=== PATIENT | female | born 1985 | race Caucasian/White ===

== ENCOUNTER 2020-01-23 20:46 | Emergency (ER) | payer OTHER ==
--- NOTE | 2020-01-23 21:22 | ER Document Report ---
ED Medical Screen (RME) - General Chief Complaint: Head Injury Stated Complaint: HEAD INJURY/HEAD PAIN Time Seen by Provider: 01/23/20 21:04 Notes: Patient is a 34-year-old female who presents emergency department with a chief complaint of head injury. Patient reports around 11 p.m. last night she bent down to pick an object up when she smacked her head on a wooden table. Patient reports that she saw stars afterwards. Patient reports she then ambulated to the restroom, looked down at the sink and hit her head on the faucet losing consciousness and falling to the floor. Patient reports she does have a history of Chiari malformation with multiple head surgeries as well as neck surgeries. Patient states today she is felt a little bit off. Patient has a hematoma to the forehead. - Related Data Allergies/Adverse Reactions: latex Allergy (Verified 01/23/20 21:06) shellfish derived Allergy (Verified 01/23/20 21:06) Past Medical History - Social History Frequency of alcohol use: Occasional Drug Abuse: Marijuana Physical Exam - Vital signs Vitals: Temp Pulse Resp BP Pulse Ox 99.3 F 109 H 16 147/78 H 99 01/23/20 20:54 01/23/20 20:54 01/23/20 20:54 01/23/20 20:54 01/23/20 20:54 Course - Re-evaluation Re-evalutation: 01/23/20 21:22 Hematoma to forehead. PERRLA. Patient speaking in clear complete sentences. No vomiting. I have greeted and performed a rapid initial assessment of this patient. A comprehensive ED assessment and evaluation of the patient, analysis of test results and completion of the medical decision making process will be conducted by additional ED providers. - Vital Signs Vital signs: Temp Pulse Resp BP Pulse Ox 99.3 F 109 H 16 147/78 H 99 01/23/20 20:54 01/23/20 20:54 01/23/20 20:54 01/23/20 20:54 01/23/20 20:54
--- NOTE | 2020-01-24 00:03 | RADIOLOGY REPORT (SQ) ---
EXAM DESCRIPTION: CT HEAD WITHOUT IV CONTRAST COMPLETED DATE/TME: 01/23/2020 21:19 CLINICAL HISTORY: Head injury with LOC COMPARISON: None available TECHNIQUE: Axial CT of the head obtained from the skull apex to the skull base without contrast. FINDINGS: No acute intracranial hemorrhage identified. No mass, mass effect, shift of the midline, abnormal extra-axial fluid collection or CT evidence of acute ischemic change identified. The ventricular system is unremarkable. No acute abnormalities of the supratentorial white matter, basal ganglia, cerebellum, or brainstem. Polypoid mucosal thickening of the bilateral maxillary sinuses. Mastoid air cells are well aerated. Postoperative change of the occipital bone. Visualized orbits and globes are unremarkable. IMPRESSION: 1. No acute intracranial abnormality identified. This exam was performed according to our departmental dose-optimization program, which includes automated exposure control, adjustment of the mA and/or kV according to patient size and/or use of iterative reconstruction technique.
--- NOTE | 2020-01-24 00:06 | RADIOLOGY REPORT (SQ) ---
EXAM DESCRIPTION: CT CERVICAL SPINE WITHOUT IV CONTRAST COMPLETED DATE/TME: 01/23/2020 21:19 CLINICAL HISTORY: Head injury with LOC COMPARISON: None available TECHNIQUE: Axial CT of the cervical spine obtained without contrast. FINDINGS: Alignment of the cervical spine is maintained without evidence of subluxation. Likely postoperative change involving the posterior ring C1. The atlantoaxial, atlantodental, and occipitoatlantal intervals are preserved. No fracture identified. Vertebral body height preserved. Prevertebral soft tissues are unremarkable. Intervertebral disc height preserved. Mild facet arthropathy at C2/C3 and C3/C4. Visualized skull base is intact. No fracture of the visualized facial bones. Visualized mastoid air cells and paranasal sinuses are well aerated. Visualized thyroid is unremarkable. No cervical lymphadenopathy. No pneumothorax in the visualized lung apices. IMPRESSION: 1. No acute fracture or subluxation of the cervical spine. This exam was performed according to our departmental dose-optimization program, which includes automated exposure control, adjustment of the mA and/or kV according to patient size and/or use of iterative reconstruction technique.
[2020-01-24] MEDS ORDERED: ONDANSETRON ODT 4 MG TAB (6 TAB/ER DISP) PO PRN (02:41)
--- NOTE | 2020-01-24 02:41 | ER Document Report ---
ED Head/Face/Scalp Injury - General Chief Complaint: Head Injury Stated Complaint: HEAD INJURY/HEAD PAIN Time Seen by Provider: 01/23/20 21:04 Primary Care Provider: LAWRENCE CALLOWAY PA [Primary Care Provider] - Follow up as needed Notes: Patient is a 34-year-old female comes emergency department chief complaint of head injury. Patient states at 11 PM last night she bent down to filler picker an object, she hit her head on a wooden table at that time. She states she was stunned, she went to the restroom, she attempted to wash her face and she struck her head again on the faucet. She states with this she passed out and woke up on the floor. Patient has a hematoma of the forehead on the left upper side this morning, she states all day she has had headaches, trouble focusing, nausea. She denies numbness in the arms, focal numbness or weakness, incontinence, vomiting, visual changes. She has a history of Chiari malformation, surgical repair, and surgery on C1. She is on gabapentin. She denies . She is not on a blood thinner. She denies alcohol. - Related Data Allergies/Adverse Reactions: latex Allergy (Verified 01/23/20 21:06) shellfish derived Allergy (Verified 01/23/20 21:06) Past Medical History - General Information source: Patient - Social History Smoking Status: Current Every Day Smoker Frequency of alcohol use: Occasional Drug Abuse: Marijuana Lives with: Family Family History: Reviewed & Not Pertinent Neurological Medical History: Reports: Other - Chiari malformation Past Surgical History: Reports: Hx Neurologic Surgery - Repair of Chiari malformation, Hx Orthopedic Surgery - Cervical spine (C1) - Immunizations Immunizations up to date: Yes Hx Diphtheria, Pertussis, Tetanus Vaccination: Yes Review of Systems - Review of Systems Constitutional: See HPI EENT: No symptoms reported Cardiovascular: No symptoms reported Respiratory: No symptoms reported Gastrointestinal: No symptoms reported Genitourinary: No symptoms reported Female Genitourinary: No symptoms reported Musculoskeletal: See HPI Skin: See HPI Hematologic/Lymphatic: No symptoms reported Neurological/Psychological: See HPI Physical Exam - Vital signs Vitals: Temp Pulse Resp BP Pulse Ox 99.3 F 109 H 16 147/78 H 99 01/23/20 20:54 01/23/20 20:54 01/23/20 20:54 01/23/20 20:54 01/23/20 20:54 - Notes Notes: GENERAL: Alert, interacts well. No acute distress. HEAD: Normocephalic. Moderate hematoma in the left mid upper forehead. No open wounds. EYES: Pupils equal, round, and reactive to light. Extraocular movements intact. Positive nystagmus horizontally in both directions. ENT: Oral mucosa moist, tongue midline. Oropharynx unremarkable. Airway patent. Nares patent, sinuses non-tender, ear canals unremarkable, TM's intact. NECK: Full range of motion. Supple. Trachea midline. No lymphadenopathy. LUNGS: Clear to auscultation bilaterally, no wheezes, rales, or rhonchi. No respiratory distress. Non-tender chest wall. HEART: Regular rate and rhythm. No murmur ABDOMEN: Soft, non-tender. Non-distended. EXTREMITIES: Moves all 4 extremities spontaneously. No edema, normal radial and dorsalis pedis pulses bilaterally. No cyanosis. BACK: no cervical, thoracic, lumbar midline tenderness. No saddle anesthesia, normal distal neurovascular exam. Moves all extremities in full range of motion. NEUROLOGICAL: Alert and oriented x3. Normal speech. GCS 15. Cranial nerves II through XII grossly intact. Strength 5/5 in all extremities. Ambulates without difficulty. Normal [id number] testing. PSYCH: Normal affect, normal mood. SKIN: Warm, dry, normal turgor. No rashes or lesions noted. Course - Re-evaluation Re-evalutation: On my evaluation patient has an obvious hematoma in the left mid to upper forehead, no open wounds, no other signs of trauma. She has scars along her neck but no overt tenderness, she has full range of motion of the neck, she ambulates without difficulty, she has no neurovascular deficits. She does have nystagmus however and she reports intermittent nausea, difficulty focusing, and intermittent headaches since the accident. CAT scan of the head and neck reviewed from triage and show chronic findings but no acute findings. Evaluation is most consistent with a concussion and a hematoma. I discussed this in detail with patient. Provided her with a copy of her reports on request, discussed expectations, follow-up, return precautions. Patient states understanding and agreement. Stable and well-appearing at time of discharge, going home with family. - Vital Signs Vital signs: Temp Pulse Resp BP Pulse Ox 98.4 F 97 16 110/74 98 01/24/20 02:46 01/24/20 02:46 01/24/20 02:46 01/24/20 02:46 01/24/20 02:46 Discharge - Discharge Clinical Impression: Head injury Qualifiers: Encounter type: initial encounter Qualified Code(s): S09.90XA - Unspecified injury of head, initial encounter Traumatic hematoma of forehead Qualifiers: Encounter type: initial encounter Qualified Code(s): S00.83XA - Contusion of other part of head, initial encounter Condition: Stable Disposition: HOME, SELF-CARE Additional Instructions: The imaging of your brain, head, neck are reassuring, however your symptoms and evaluation are consistent with a concussion. He will most likely have postconcussive symptoms including difficulty focusing, nausea, the sensation that something is not right, headaches, etc. This should gradually resolve with time. Ice your forehead, rest. You can take Zofran for nausea/headaches. This can be safely combined with 600 mg of ibuprofen and 1000 mg of Tylenol every 6 hours. You can also take 25 to 50 mg of Benadryl along with this if needed. Follow-up with primary care for additional management. Return if you worsen including developing vomiting, new numbness, a seizure, or any other concerning or worsening symptoms. Prescriptions: Ondansetron [Zofran Odt 4 mg Tablet] 1 - 2 tab PO Q4H PRN #15 tab.rapdis PRN Reason: For Nausea/Vomiting Forms: Return to Work Referrals: LAWRENCE CALLOWAY PA [Primary Care Provider] - Follow up as needed
[2020-01-24 03:05] VITALS: BP 110/74
== END 2020-01-24 02:46 | disposition home or self-care (01) ==
LOC: ER 20:46
DX: S06.9X9A Unspecified intracranial injury with loss of consciousness of unspecified duration, initial encounter (principal); S00.83XA Contusion of other part of head, initial encounter; W22.09XA Striking against other stationary object, initial encounter; Y92.89 Other specified places as the place of occurrence of the external cause; F12.10 Cannabis abuse, uncomplicated; F17.200 Nicotine dependence, unspecified, uncomplicated; Z79.899 Other long term (current) drug therapy; Z91.040 Latex allergy status; Z91.013 Allergy to seafood
CPT/HCPCS: 70450; 72125; 99284